=== PATIENT | male | born 1980 | race Caucasian/White ===

== ENCOUNTER → 2016-10-21 | Outpatient (CLI) | payer OTHER ==
[~2016-10-21] MED LIST: CPR500 PO
[2016-10-21 21:16] LABS: BASO % 0.6 %; BASO ABS # 0.04 K/uL (0-0.2); COMPLETE YES; EOS % 4.3 %; HEMATOCRIT 48.1 % (42-52); IG% 0.3 %; LYMPH % 28.9 %; LYMPH ABS # 1.93 K/uL (1.2-3.4); MEAN CELL VOLUME 89.6 fL (80-100); MEAN CORPUSCULAR HEMOGLOBIN 30.4 pg (25-34); MEAN CORPUSCULAR HGB CONC 33.9 g/dl (32-36); MEAN PLATELET VOLUME 10.6 fL (7.4-10.4); MONO % 7.6 %; NEUT % 58.3 %; PLATELET COUNT 208 K/uL (130-400); RED BLOOD COUNT 5.37 M/uL (4.7-6.1); WHITE BLOOD COUNT 6.68 K/uL (4.8-10.8)
== END | disposition home or self-care (01) ==
LOC: C.LAB 19:47
PROVIDERS: ATTEND Family Medicine
DX: N45.1 Epididymitis (principal)

== ENCOUNTER → 2016-10-21 | Outpatient (CLI) | payer OTHER ==
--- NOTE | 2016-10-21 08:10 | DIAGNOSTIC IMAGING REPORT ---
SCROTAL ULTRASOUND CLINICAL HISTORY: Left inguinal hernia. COMPARISON STUDY: None. TECHNIQUE: Grayscale and color and duplex Doppler sonography of the scrotum was performed. FINDINGS: The right testis measures 4.4 x 1.8 x 2.5 cm and left measures 4.1 x 2 x 2.7 cm. Color-flow within each testis is symmetric. There is no testicular mass. There is a 2 mm left epididymal head cyst. There is no evidence of epididymitis. There are small bilateral varicoceles. No left inguinal hernia was identified by sonography. IMPRESSION: 1. Normal sonographic appearance of the testes. 2. No left inguinal hernia identified by sonography. 3. Small bilateral varicoceles. Electronically signed by: Ben Ruiz M.D. 10/21/2016 8:09 AM Dictated Date/Time: 10/21/2016 8:06 AM
== END | disposition home or self-care (01) ==
LOC: C.ULTR 07:24
PROVIDERS: ATTEND Student in an Organized Health Care Education/Training Program
DX: K40.90 Unilateral inguinal hernia, without obstruction or gangrene, not specified as recurrent (principal); I86.1 Scrotal varices